=== PATIENT | female | born 1935 | race Caucasian/White ===

== ENCOUNTER 2019-11-13 10:40 | Outpatient (CLI) | payer MEDICARE, BC ==
--- NOTE | 2019-11-13 11:32 | RAD ---
EXAM: 3 views of the left shoulder HISTORY: Shoulder pain COMPARISON: None FINDINGS: There is no evidence of acute fracture or dislocation. Joint space narrowing and osteophyte formation is seen in the acromioclavicular joint. No glenohumeral degenerative change is seen. No soft tissue swelling is seen. The visualized thorax is unremarkable. IMPRESSION: Mild left AC osteoarthritis
--- NOTE | 2019-11-13 11:37 | RAD ---
EXAM: 3 views of the right shoulder HISTORY: Shoulder pain COMPARISON: Left shoulder radiographs 11/13/2019 FINDINGS: There is no evidence of acute fracture or dislocation. No degenerative changes are present. No soft tissue swelling is seen. The visualized thorax is unremarkable. IMPRESSION: No evidence of acute osseous abnormality.
== END 2019-11-13 10:41 | disposition home or self-care (01) ==
LOC: SCSRAD 10:40
PROVIDERS: ATTEND Family Medicine
DX: M25.511 Pain in right shoulder (principal); M25.512 Pain in left shoulder; M19.012 Primary osteoarthritis, left shoulder

== ENCOUNTER 2020-01-15 10:05 | Outpatient (CLI) | payer MEDICARE, BC ==
--- NOTE | 2020-01-15 10:47 | MMO ---
Bilateral MAMMO Bilat Screen [facility]. CLINICAL HISTORY: Patient is 84 years old and is seen for screening. The patient has the following family history of breast cancer: paternal aunt. The patient has no personal history of cancer. The patient has a history of left cyst aspiration in ? - benign - Cyst Removal. VIEWS: The views performed were: bilateral craniocaudal with tomosynthesis and bilateral mediolateral oblique with tomosynthesis. FILMS COMPARED: The present examination has been compared to prior imaging studies performed at [facility] on 03/02/2011, 01/08/2013, 01/07/2015 and 03/10/2017. This study has been interpreted with the assistance of computer-aided detection. MAMMOGRAM FINDINGS: There are scattered fibroglandular densities. There is an asymmetry seen in the sub-areolar region of the left breast. In the right breast, there are no suspicious masses, calcifications or areas of architectural distortion. IMPRESSION: ASYMMETRY IN THE LEFT BREAST REQUIRES ADDITIONAL EVALUATION. AN ULTRASOUND EXAM IS RECOMMENDED IF NEEDED. RECOMMEND DIAGNOSTIC MAMMOGRAM. THE RESULTS OF THIS EXAM WERE SENT TO THE PATIENT. ACR BI-RADS Category 0 - Incomplete: Need additional imaging evaluation. [facility] will notify the patient of the need for additional imaging services. MAMMOGRAPHY NOTE: 1. A negative mammogram report should not delay a biopsy if a dominant of clinically suspicious mass is present. 2. Approximately 10% to 15% of breast cancers are not detected by mammography. 3. Adenosis and dense breasts may obscure an underlying neoplasm. Reported by: LEI CHANDRA MD Electonically Signed: [id number]
== END 2020-01-15 10:06 | disposition home or self-care (01) ==
LOC: BICMAMMO 10:05
PROVIDERS: ATTEND Family Medicine
DX: Z12.31 Encounter for screening mammogram for malignant neoplasm of breast (principal); Z80.3 Family history of malignant neoplasm of breast; N64.89 Other specified disorders of breast
CPT/HCPCS: 77063; 77067

== ENCOUNTER 2020-01-18 08:44 | Outpatient (CLI) | payer MEDICARE, BC ==
--- NOTE | 2020-01-18 09:39 | MMO ---
Left Breast MAMMO Unilat Diag DDI LT+SHREYA. CLINICAL HISTORY: Patient is 84 years old and is seen for additional evaluation requested from prior study. The patient has the following family history of breast cancer: paternal aunt. The patient has no personal history of cancer. The patient has a history of left cyst aspiration in ? - benign - Cyst Removal. VIEWS: The views performed were: left craniocaudal spot compression with tomosynthesis; left mediolateral oblique spot compression with tomosynthesis; and left mediolateral with tomosynthesis. FILMS COMPARED: The present examination has been compared to prior imaging studies performed at [facility] on 01/07/2015, 03/10/2017, 01/15/2020 and 01/18/2020. This study has been interpreted with the assistance of computer-aided detection. MAMMOGRAM FINDINGS: There are scattered fibroglandular densities. Additional views were performed. There is a suspicious 5mm mass in the left subaerolar region (6:00) on US ans hould be biopsied. IMPRESSION: FINDING IN THE LEFT BREAST IS SUSPICIOUS. AN ULTRASOUND-GUIDED BREAST BIOPSY IS RECOMMENDED. THE RESULTS OF THIS EXAM WERE SENT TO THE PATIENT. ACR BI-RADS Category 4 - Suspicious abnormality - biopsy should be considered D/W pt in person @ 9:30 am MAMMOGRAPHY NOTE: 1. A negative mammogram report should not delay a biopsy if a dominant of clinically suspicious mass is present. 2. Approximately 10% to 15% of breast cancers are not detected by mammography. 3. Adenosis and dense breasts may obscure an underlying neoplasm. Reported by: JOANIE ANGELES MD Electonically Signed: [id number]
--- NOTE | 2020-01-18 10:55 | ULT ---
LEFT BREAST ULTRASOUND: Date: 01/18/2020 HISTORY: Abnormal mammogram. FINDINGS: Correlation is made with mammograms of 01/18/2020 and 01/15/2020. Sonographic evaluation of the retroareolar aspect of the left breast demonstrates an irregular hypoec hoic solid appearing shadowing nodule at the 6 o'clock position measuring about 5.0 x 4.0 x 4.0 mm. IMPRESSION: BI-RADS Category 4 - Suspicious abnormality. Ultrasound-guided biopsy is recommended. Discussed in person with the patient at 0934 hours and over the telephone with Dr. Teofilo Pace at 09 58 hours. CODE CR. POS: OFF
== END 2020-01-18 08:45 | disposition home or self-care (01) ==
LOC: BICMAMMO 08:44
PROVIDERS: ATTEND Family Medicine
DX: N64.89 Other specified disorders of breast (principal)
CPT/HCPCS: 76642; 77065; G0279

== ENCOUNTER → 2020-01-28 | Day surgery (SDC) | payer MEDICARE, BC ==
--- NOTE | 2020-01-28 14:04 | MMO ---
FILMS COMPARED: The present examination has been compared to prior imaging studies performed at [facility] on 03/10/2017, 01/15/2020 and 01/18/2020. MAMMOGRAM FINDINGS: There is a new biopsy clip seen in the left breast. IMPRESSION: NEW BIOPSY CLIP IN THE LEFT BREAST IS CONFIRMED UTILIZING POST PROCEDURE MAMMOGRAM. Reported by: JOANIE ANGELES MD Electonically Signed: [id number]
--- NOTE | 2020-01-28 14:58 | ULT ---
PROCEDURE: 1. Ultrasound-guided core biopsy left breast. 2. Ultrasound-guided localization marker at biopsy site. 3. Post procedure mammogram left breast. INDICATION: A hypoechoic mass left periareolar region at 5-6 o'clock has been previously identified. The patient now presents for ultrasound-guided core biopsy. FINDINGS: 1. Ultrasound again confirms a hypoechoic mass measuring in the 5 mm range at 5-6 o'clock periareola r region left breast. This region is more at 5 o'clock today with breast placed in neutral position. This mass is biopsied under ultrasound guidance using a 14-gauge BARD instrument. Five core biopsy s pecimens were taken through the mass and confirmed with ultrasound. Specimens were placed in formali n. 2. Localization marker was placed at biopsy site under ultrasound guidance. 3. Postprocedure mammogram was performed to assess marker placement. PROCEDURE NOTE: Left breast was prepped and draped in a sterile manner. A lateral approach was selected. Local anes thesia was administered under ultrasound guidance with Lidocaine and bicarb. A tiny skin incision wa s made laterally. A 14-gauge BARD biopsy instrument with guide needle in place was introduced under ultrasound guidance. The tip of the needle was advanced to the leading edge of the mass and confirme d with ultrasound. A pre-fire image was obtained. A post-fire image confirmed biopsy through the ma ss. Specimen was placed in formalin. This was repeated x 5 with 5 specimens obtained. Each biopsy was confirmed with ultrasound pre- and post-fire images. Localization marker was then placed at the biopsy site with ultrasound guidance. The patient tolerated the procedure well and was sent for post procedure mammogram. Biopsy report will be called to patient later this week. POS: GILES
== END ==
LOC: BICULT 12:51
PROVIDERS: ATTEND Family Medicine
PROC: 0H9U3ZX Drainage of Left Breast, Percutaneous Approach, Diagnostic (ICD-10-PCS; principal; 2020-01-28)
DX: D05.02 Lobular carcinoma in situ of left breast (principal)
CPT/HCPCS: 19083; 88305; 88341; 88342

== ENCOUNTER 2020-04-28 06:41 | Outpatient (CLI) | payer MEDICARE, BC ==
[2020-04-28 09:50] LABS: #Eosinphils 0.2 10x3/uL (0.0-0.5); #Monocytes 0.4 10x3/uL (0.0-1.1); #Neutrophils 2.3 10x3/uL (1.5-8.4); %Basophils 0.7 % (0.0-2.0); %Lymphocytes 34.2 % (18.0-47.0); %Monocytes 9.9 % (0.0-10.0); Hemoglobin 14.8 g/dL (12.0-16.0); Mean Corpuscular Hemoglobin 30.6 PG (27.0-33.0); Mean Corpuscular Volume 89.9 fl (80.0-100.0); Mean Platelet Volume 9.9 fl (7.4-10.4); Platelet Count 232 10x3/uL (130-400); RBC Distribution Width 13.2 % (11.5-14.5); Red Blood Cell (RBC) Count 4.84 10x6/uL (3.90-5.20); White Blood Cell (WBC) Count 4.5 10x3/uL (4.5-11.0)
[2020-04-28 10:20] LABS: Anion Gap 16 mmol/L (10-20); BUN (Urea Nitrogen) 17 mg/dL (9.8-20.1); Calc. Creatinine Clearance 0 mL/min (70-130); Calcium 8.9 mg/dL (7.8-10.44); Carbon Dioxide 22 mmol/L (23-31); Chloride 106 mmol/L (98-107); Glucose 97 mg/dL (83-110); Potassium 4.3 mmol/L (3.5-5.1); Sodium 140 mmol/L (136-145)
--- NOTE | 2020-04-28 11:44 | RAD ---
CHEST 2 VIEWS: HISTORY: Preop evaluation. COMPARISON: None. FINDINGS: Lungs are clear. No pneumothorax or effusion. Cardiac silhouette and mediastinal contours are withi n normal limits. IMPRESSION: No acute intrathoracic abnormality. POS: H
[2020-04-28 18:24] LABS: SARS-CoV-2 MS2 Positive; SARS-CoV-2 N Gene Negative; SARS-CoV-2 S Gene Negative; SARS-CoV-2 by NAA Not Detected (NotDetected); SARS-CoV-2 orf1ab Negative
== END 2020-04-28 06:42 | disposition home or self-care (01) ==
LOC: LABBT 06:41
PROVIDERS: ATTEND Specialist
DX: Z01.818 Encounter for other preprocedural examination (principal); D05.02 Lobular carcinoma in situ of left breast; Z20.828 Contact with and (suspected) exposure to other viral communicable diseases
CPT/HCPCS: 71046; 80048; 85025; 93005; U0003; 87635; 93010

== ENCOUNTER 2020-05-01 06:59 | Day surgery (SDC) | payer MEDICARE, BC ==
[2020-04-28 11:01] VITALS: BMI 29.2
[2020-05-01] MEDS ORDERED: Ketorolac Tromethamine 30 MG/ML VIAL ONE (07:56)
[2020-05-01] MEDS ORDERED: Acetaminophen 500 MG TAB ONE (07:56)
--- NOTE | 2020-05-01 08:38 | MMO ---
Needle localization left breast mammographic guided HISTORY: Left breast cancer. FINDINGS: After explaining the procedure and answering all questions, the localization clip in region of recent sonographic guided biopsy was visualized. Sterile technique, buffered local anesthesia, mammographic guidance, and a superior approach were use d to carefully advance a 7.5 cm [place] needle and wire to the localization clip, with the needle tip lying immediately inferior and posterior to the localization clip and the wire hooked around the clip . Final images were marked. Patient tolerated the procedure well and was transferred to day surgery in good condition. IMPRESSION : Technically successful needle localization left breast cancer.
[2020-05-01] MEDS ORDERED: Fentanyl 100 MCG/2 ML VIAL ONE (08:56)
[2020-05-01] MEDS ORDERED: Bupivacaine 0.25% HCL 30 ML VIAL ONE (08:59)
[2020-05-01] MEDS ORDERED: Lidocaine 2% w/Epinephrine 1:200K 20 ML VIAL ONE (08:59)
--- NOTE | 2020-05-01 10:18 | MMO ---
Surgical specimen mammography HISTORY: Left breast cancer. FINDINGS: Mammographic evaluation of the surgical specimen obtained by Dr. Vega shows the localiza tion wire, metallic clip, and microcalcifications within the tissue. Results were called to Dr. Vega in the OR at the time of the exam.
[2020-05-01] MEDS ORDERED: Dexamethasone 20 MG/5 ML VIAL ONE (10:31)
[2020-05-01] MEDS ORDERED: Ondansetron PF 4 MG/2 ML Vial ONE (10:31)
[2020-05-01] MEDS ORDERED: ePHEDrine 50 MG/ML VIAL ONE (10:31)
[2020-05-01] MEDS ORDERED: PROPOFOL 200 MG/20 ML VIAL ONE (10:31)
[2020-05-01] MEDS ORDERED: Lidocaine 1% PF 5 ML VIAL ONE (10:31)
--- NOTE | 2020-05-02 11:05 | OP ---
DATE OF PROCEDURE: 05/01/2020 PREOPERATIVE DIAGNOSIS: Left breast lobular carcinoma in situ. POSTOPERATIVE DIAGNOSIS: Left breast lobular carcinoma in situ. OPERATION PERFORMED: Mammographic left breast needle localization with subsequent needle localized excisional biopsy. ANESTHESIA: Total intravenous anesthesia with local using 0.25% Marcaine with epinephrine. INDICATIONS: The patient is an 84-year-old white female. She had a concerning abnormality on a recent mammogram for which biopsy was recommended. Stereotactic biopsy of the lesion revealed lobular carcinoma in situ. There was questionable microinvasion with some of the tissue. The patient was referred to see myself and I recommended a completion excisional biopsy with needle localization. DESCRIPTION OF OPERATION: Informed consent was obtained. The patient had needle localization performed per Radiology Department with mammographic guidance. The area of the clip appeared to be just anterior to the distal tip of the localizing wire. The needle and wire entered the left breast in a superior to inferior fashion. The tip of the wire appeared to be at about the 4 o'clock radian of the breast, but the needle entry site was at about the 1 o'clock radian. The breast was prepped with ChloraPrep and draped in sterile fashion along with the localizing needle. I created a counter incision at the superior aspect of the areola in a transverse fashion. This was felt to be at about the mid point of the localizing needle which was almost 7 cm from the needle entry site to the needle tip. Dissection was carried through skin and subcutaneous tissue after local anesthetic was infiltrated. I dissected down, identified the wire. At the point that the wire was about 3.5 cm from the tip of the needle, the needle was removed and the wire was replaced to the incision. The tissue into which the wire entered was grasped with Allis clamps and widely dissected, paying special attention to the anterior aspect as, again, it was noted that the clip was anterior to the wire. The specimen was dissected and removed intact. This was submitted for specimen mammography, which did reveal that the clip was present within the lesion. I was concerned that I may not get enough of an anterior margin and therefore while I was awaiting the x-ray results, I obtained an additional shave margin of the anterior aspect of the biopsy cavity. This was oriented with suture and submitted separately. Meticulous hemostasis was obtained within the wound. It was closed in layers with 3-0 and 4-0 Monocryl. Additional local anesthetic was instilled within the wound during closure. Dermabond was placed externally. There were no complications. The patient tolerated the procedure well and was taken to recovery room in stable condition. Job ID: [id number]
== END 2020-05-01 11:55 | disposition home or self-care (01) ==
LOC: SDC 06:59
PROVIDERS: ATTEND Specialist
PROC: 0HBU0ZX Excision of Left Breast, Open Approach, Diagnostic (ICD-10-PCS; principal; 2020-05-01)
DX: D05.02 Lobular carcinoma in situ of left breast (principal); D24.2 Benign neoplasm of left breast; E78.5 Hyperlipidemia, unspecified; Z79.899 Other long term (current) drug therapy; Z91.048 Other nonmedicinal substance allergy status
CPT/HCPCS: 19281; 76098; 88307; J0690; J1100; J1885; J2405; J2704; J3010; J3490; S0020

== ENCOUNTER 2022-01-07 09:10 | Outpatient (CLI) | payer MEDICARE, BC | END 2022-01-07 09:11 | disposition home or self-care (01) | LOC: BICMAMMO 09:10 | PROVIDERS: ATTEND Family Medicine | DX: N64.89 Other specified disorders of breast (principal); L90.5 Scar conditions and fibrosis of skin; Z98.890 Other specified postprocedural states | CPT/HCPCS: 77065; G0279 ==